=== PATIENT | male | born 1965 | race Caucasian/White ===

== ENCOUNTER 2016-06-29 03:24 | Inpatient (IN) | payer MEDICARE ==
[~2016-06-29] VITALS: Ht 172.7 cm; Wt 88.2 kg
[2016-06-29 04:16] LABS: Basophils # (auto) 0 uL; Basophils % (auto) 0.5 % (0.0-2.0); Eosinophils # (auto) 0.4 uL; Eosinophils % (auto) 3.9 % (0.0-7.0); Hemoglobin 13.3 g/dL (13.5-17.5); Lymphocytes # (auto) 2.1 uL; Lymphocytes % (auto) 21.6 % (10.0-50.0); Mean Corpuscular Hemoglobin 27.5 pg (28.0-32.0); Mean Corpuscular Hgb Conc. 33.3 g/dL (32.0-36.0); Mean Corpuscular Volume 82.5 fL (80.0-100.0); Mean Platelet Volume 10.9 fL (7.4-10.4); Monocytes # (auto) 0.7 uL; Monocytes % (auto) 7.5 % (0.0-12.0); Neutrophils # (auto) 6.6 uL; Neutrophils % (auto) 66.5 % (37.0-80.0); Platelet Count (auto) 232 10^3/uL (140-450); White Blood Cell 9.9 10^3/uL (4.4-10.8)
[2016-06-29 04:34] LABS: Albumin 3.3 g/dL (3.4-5.0); BUN/Creatinine Ratio 18.1; Calcium 8.4 mg/dL (8.5-10.1); Potassium 4.3 mmol/L (3.5-5.1)
[2016-06-29 04:39] LABS: Bilirubin, Total 0.5 mg/dL (0.2-1.0); Total Protein 6.8 g/dL (6.4-8.2)
[2016-06-29] MEDS ORDERED: SODIUM CHLORIDE 0.9% 1,000 ML IV ONE (06:35)
[2016-06-29] MEDS ORDERED: methylPREDNISolone SOD SUCC 125 MG/2 ML VL IV ONE (06:45)
[2016-06-29] MEDS ORDERED: LEVOFLOXACIN 750MG 150 ML IV ONE (06:45)
[2016-06-29] MEDS ORDERED: FUROSEMIDE 40 MG/4 ML VIAL IV ONE (06:45)
[2016-06-29] MEDS ORDERED: methylPREDNISolone SOD SUCC 125 MG/2 ML VL ONE (06:48)
[2016-06-29 07:12] LABS: B-Type Natriuretic Peptide 1808.6 pg/mL (0-100); Temperature: 23.3 C (20.0-25.0)
[2016-06-29] MEDS ORDERED: IOHEXOL 350 MG/ML 100ML IJ ONE (07:16)
[2016-06-29 07:19] LABS: Base Excess -2.1 mmol/L (-2.0-2.0); Blood 02Sat 93.9 % (96-100); Blood COHb 0.5 % (0.5-1.5); Blood MetHb 0.2 % (0.0-1.5); HCO3 21.2 mmol/L (22-26.0); HHb 6.1 % (0.0-5.0); MODE NASAL CANNULA; O2Hb 93.2 % (94.0-97.0); PCO2 32.4 mmHg (35.0-45.0); PCO2(T) 32.4 mmHg (35.0-45.0); PO2 76.1 mmHg (80.0-100.0); PO2(T) 76.1 mmHg (80.0-100.0); Sample Type Arterial; pH 7.434 (7.350-7.450)
[2016-06-29] MEDS ORDERED: LACTULOSE 20Gm/30ML SOLN PO PRN (08:45)
[2016-06-29] MEDS ORDERED: MORPHINE SULF INJ 2 MG/ML SYRINGE 1ML IV PRN ×2 (08:45)
[2016-06-29] MEDS ORDERED: TEMAZEPAM 15 MG CAP PO PRN (08:45)
[2016-06-29] MEDS ORDERED: PROMETHAZINE HCL 25 MG/ML 1ML IV PRN (08:45)
[2016-06-29] MEDS ORDERED: ALBUTEROL SULF 2.5 MG/0.5ML(0.5%) NEB SOLN NEB PRN (08:45)
[2016-06-29] MEDS ORDERED: ACETAMINOPHEN 500 MG TAB PO PRN (08:45)
[2016-06-29] MEDS ORDERED: HYDROcodone-ACET 5/325MG TAB PO PRN (08:45)
[2016-06-29] MEDS ORDERED: NITROGLYCERIN 0.4 MG SL TAB SL PRN (08:45)
[2016-06-29] MEDS ORDERED: LORazepam 0.5 MG TAB PO PRN (08:45)
[2016-06-29] MEDS: cefTRIAXone 1GM/50ML D5W 50 ML IV SCH (09:00)
[2016-06-29] MEDS ORDERED: PANTOPRAZOLE SODIUM 40 MG/10 ML VIAL IV ONE (09:15)
[2016-06-29 09:55] VITALS: BP 106/68
[2016-06-29 10:00] VITALS: BP 106/68
[2016-06-29] MEDS ORDERED: ASPirin 81 mg TAB PO SCH (10:00)
[2016-06-29] MEDS: PANTOPRAZOLE 40 MG TAB PO SCH (10:00)
[2016-06-29] MEDS ORDERED: ENOXAPARIN SOD 40 MG/0.4 ML SYRINGE SC SCH ×2 (10:00)
[2016-06-29] MEDS: AZITHROMYCIN 500MG/D5W 250ML 250 ML IV SCH (10:00)
[2016-06-29] MEDS: CARVEDILOL 3.125 MG TAB PO SCH ×2 (10:39→21:02)
[2016-06-29] MEDS: ENALAPRIL MALEATE 2.5 MG TAB PO SCH (10:39)
[2016-06-29] MEDS: POTASSIUM CHL 20 Meq TABLET PO SCH ×2 (10:44→21:03)
[2016-06-29 12:00] VITALS: BP 103/67
[2016-06-29 12:10] LABS: Hematocrit 41.4 % (41.0-53.0); Hemoglobin 13.5 g/dL (13.5-17.5)
[2016-06-29] MEDS: ALBUTEROL SULF 2.5 MG/0.5ML(0.5%) NEB SOLN NEB SCH ×2 (12:30→18:50)
[2016-06-29 16:00] VITALS: BP 102/54
[2016-06-29] MEDS: FUROSEMIDE 40 MG/4 ML VIAL IV SCH (18:19)
[2016-06-29 19:47] LABS: Hematocrit 40.1 % (41.0-53.0); Hemoglobin 13.1 g/dL (13.5-17.5)
[2016-06-29 19:59] VITALS: BP 116/79
[2016-06-30] VITALS: BP 107/56
[2016-06-30] MEDS: ALBUTEROL SULF 2.5 MG/0.5ML(0.5%) NEB SOLN NEB SCH ×4 (00:55→15:50)
[2016-06-30 04:01] VITALS: BP 87/55
[2016-06-30 05:04] LABS: Basophils # (auto) 0.1 uL; Basophils % (auto) 0.9 % (0.0-2.0); Eosinophils # (auto) 0 uL; Eosinophils % (auto) 0.3 % (0.0-7.0); Hematocrit 40.1 % (41.0-53.0); Hemoglobin 13.2 g/dL (13.5-17.5); Lymphocytes # (auto) 1.6 uL; Lymphocytes % (auto) 12.8 % (10.0-50.0); Mean Corpuscular Hemoglobin 27.4 pg (28.0-32.0); Mean Corpuscular Hgb Conc. 32.8 g/dL (32.0-36.0); Mean Corpuscular Volume 83.3 fL (80.0-100.0); Mean Platelet Volume 11.6 fL (7.4-10.4); Monocytes # (auto) 1.3 uL; Monocytes % (auto) 10.5 % (0.0-12.0); Neutrophils # (auto) 9.2 uL; Neutrophils % (auto) 75.5 % (37.0-80.0); Platelet Count (auto) 255 10^3/uL (140-450); SUSPECT VIEW TRANSMISSION; White Blood Cell 12.1 10^3/uL (4.4-10.8)
[2016-06-30] MEDS: FUROSEMIDE 40 MG/4 ML VIAL IV SCH ×2 (05:12→18:45)
[2016-06-30] MEDS ORDERED: SODIUM CHLORIDE 0.9 % NEB SOLN 3ML NEB ONE ×2 (05:13→05:32)
[2016-06-30 05:21] LABS: Albumin 3.4 g/dL (3.4-5.0); BUN/Creatinine Ratio 23.8; Bilirubin, Total 0.5 mg/dL (0.2-1.0); Calcium 8.9 mg/dL (8.5-10.1); Potassium 4.7 mmol/L (3.5-5.1); Total Protein 7.1 g/dL (6.4-8.2)
[2016-06-30 06:40] LABS: B-Type Natriuretic Peptide 2282.43 pg/mL (0-100); Temperature: 23.1 C (20.0-25.0)
[2016-06-30 08:19] VITALS: BP 111/66
[2016-06-30] MEDS: cefTRIAXone 1GM/50ML D5W 50 ML IV SCH (09:28)
[2016-06-30] MEDS: ENALAPRIL MALEATE 2.5 MG TAB PO SCH (10:00)
[2016-06-30] MEDS: AZITHROMYCIN 500MG/D5W 250ML 250 ML IV SCH (10:24)
[2016-06-30] MEDS: PANTOPRAZOLE 40 MG TAB PO SCH (10:24)
[2016-06-30] MEDS: POTASSIUM CHL 20 Meq TABLET PO SCH ×2 (10:24→22:47)
[2016-06-30] MEDS: CARVEDILOL 3.125 MG TAB PO SCH ×3 (10:24→22:46)
[2016-06-30 11:51] VITALS: BP 97/67
[2016-06-30 16:15] VITALS: BP 110/70
[2016-06-30 22:00] VITALS: BP 94/59
[2016-07-01 05:40] VITALS: BP 100/60
[2016-07-01] MEDS: FUROSEMIDE 40 MG/4 ML VIAL IV SCH ×2 (06:23→17:30)
[2016-07-01 06:25] LABS: Basophils # (auto) 0.1 uL; Basophils % (auto) 1.2 % (0.0-2.0); Eosinophils # (auto) 0.5 uL; Eosinophils % (auto) 4.7 % (0.0-7.0); Hematocrit 43.6 % (41.0-53.0); Hemoglobin 14.3 g/dL (13.5-17.5); Lymphocytes # (auto) 2.4 uL; Lymphocytes % (auto) 23.9 % (10.0-50.0); Mean Corpuscular Hgb Conc. 32.7 g/dL (32.0-36.0); Mean Corpuscular Volume 82.6 fL (80.0-100.0); Mean Platelet Volume 11.6 fL (7.4-10.4); Monocytes # (auto) 0.6 uL; Monocytes % (auto) 6.5 % (0.0-12.0); Neutrophils # (auto) 6.3 uL; Neutrophils % (auto) 63.7 % (37.0-80.0); Platelet Count (auto) 251 10^3/uL (140-450); Red Cell Distribution Width 16.2 % (11.6-16.0); White Blood Cell 9.9 10^3/uL (4.4-10.8)
[2016-07-01 07:01] LABS: Albumin 3.5 g/dL (3.4-5.0); BUN/Creatinine Ratio 26.2; Bilirubin, Total 0.9 mg/dL (0.2-1.0); Calcium 9.1 mg/dL (8.5-10.1); Potassium 4.1 mmol/L (3.5-5.1); Total Protein 7.3 g/dL (6.4-8.2)
[2016-07-01 07:14] LABS: B-Type Natriuretic Peptide 1827.01 pg/mL (0-100); Temperature: 23.3 C (20.0-25.0)
[2016-07-01] MEDS: ALBUTEROL SULF 2.5 MG/0.5ML(0.5%) NEB SOLN NEB SCH ×4 (07:21→18:00)
[2016-07-01 09:00] VITALS: BP 97/54
[2016-07-01] MEDS: ENALAPRIL MALEATE 2.5 MG TAB PO SCH (10:00)
[2016-07-01] MEDS: CARVEDILOL 3.125 MG TAB PO SCH ×2 (10:00→22:00)
[2016-07-01] MEDS: PANTOPRAZOLE 40 MG TAB PO SCH (10:23)
[2016-07-01] MEDS: POTASSIUM CHL 20 Meq TABLET PO SCH ×2 (10:24→22:32)
[2016-07-01] MEDS: cefTRIAXone 1GM/50ML D5W 50 ML IV SCH (10:25)
[2016-07-01] MEDS: AZITHROMYCIN 500MG/D5W 250ML 250 ML IV SCH (11:04)
[2016-07-01 13:00] VITALS: BP 96/64
[2016-07-01 17:00] VITALS: BP 93/56
[2016-07-01 22:00] VITALS: BP 93/56
[2016-07-02 05:30] VITALS: BP 103/58
[2016-07-02] MEDS: ALBUTEROL SULF 2.5 MG/0.5ML(0.5%) NEB SOLN NEB SCH ×4 (05:50→18:00)
[2016-07-02] MEDS: FUROSEMIDE 40 MG/4 ML VIAL IV SCH ×2 (06:31→18:00)
[2016-07-02 08:00] VITALS: BP 100/57
[2016-07-02] MEDS: PANTOPRAZOLE 40 MG TAB PO SCH (09:56)
[2016-07-02] MEDS: POTASSIUM CHL 20 Meq TABLET PO SCH ×2 (09:56→23:06)
[2016-07-02] MEDS: cefTRIAXone 1GM/50ML D5W 50 ML IV SCH (09:57)
[2016-07-02] MEDS: ENALAPRIL MALEATE 2.5 MG TAB PO SCH (10:00)
[2016-07-02] MEDS: CARVEDILOL 3.125 MG TAB PO SCH ×2 (10:00→22:00)
[2016-07-02] MEDS: AZITHROMYCIN 500MG/D5W 250ML 250 ML IV SCH (10:53)
[2016-07-02 13:00] VITALS: BP 88/59
[2016-07-02 14:06] VITALS: BP 88/59
[2016-07-02 17:00] VITALS: BP 101/65
[2016-07-02 22:00] VITALS: BP 94/61
[2016-07-03] MEDS: FUROSEMIDE 40 MG/4 ML VIAL IV SCH (05:31)
[2016-07-03 05:32] VITALS: BP 99/72
[2016-07-03] MEDS: ALBUTEROL SULF 2.5 MG/0.5ML(0.5%) NEB SOLN NEB SCH ×2 (06:54)
[2016-07-03 07:14] LABS: BUN/Creatinine Ratio 20.4; Calcium 8.9 mg/dL (8.5-10.1); Potassium 4.7 mmol/L (3.5-5.1)
[2016-07-03 07:16] LABS: Temperature: 22.9 C (20.0-25.0)
[2016-07-03 08:00] VITALS: BP 109/63
[2016-07-03 09:00] VITALS: BP 109/63
[2016-07-03] MEDS: cefTRIAXone 1GM/50ML D5W 50 ML IV SCH (09:00)
[2016-07-03] MEDS ORDERED: ASPI-231 PO (09:02)
[2016-07-03] MEDS ORDERED: POTA20TA53 PO (09:02)
[2016-07-03] MEDS ORDERED: ENA2.5T PO (09:02)
[2016-07-03] MEDS ORDERED: FURO40TA PO (09:02)
[2016-07-03] MEDS ORDERED: CAR3125T PO (09:02)
[2016-07-03] MEDS ORDERED: LEVO750T64 PO (09:08)
[2016-07-03] MEDS: PANTOPRAZOLE 40 MG TAB PO SCH (10:00)
[2016-07-03] MEDS: CARVEDILOL 3.125 MG TAB PO SCH (10:00)
[2016-07-03] MEDS: POTASSIUM CHL 20 Meq TABLET PO SCH (10:00)
[2016-07-03] MEDS: ENALAPRIL MALEATE 2.5 MG TAB PO SCH (10:00)
[2016-07-03] MEDS: AZITHROMYCIN 500MG/D5W 250ML 250 ML IV SCH (10:00)
== END 2016-07-03 10:32 | disposition home or self-care (01) | DRG 291 ==
LOC: ER 03:31 → TELE 03:32 → DOU IN ICU 10:00 → TELE-WESTW 06-30 20:49
PROVIDERS: ADMIT Internal Medicine; ATTEND Internal Medicine
DX: I50.43 Acute on chronic combined systolic (congestive) and diastolic (congestive) heart failure (principal); J96.00 Acute respiratory failure, unspecified whether with hypoxia or hypercapnia; J18.9 Pneumonia, unspecified organism; J90 Pleural effusion, not elsewhere classified; I11.0 Hypertensive heart disease with heart failure; I35.0 Nonrheumatic aortic (valve) stenosis; I25.10 Atherosclerotic heart disease of native coronary artery without angina pectoris; Z91.19 Patient's noncompliance with other medical treatment and regimen; Z66 Do not resuscitate; F17.210 Nicotine dependence, cigarettes, uncomplicated; I35.9 Nonrheumatic aortic valve disorder, unspecified; F32.9 Major depressive disorder, single episode, unspecified; I25.2 Old myocardial infarction; Z82.49 Family history of ischemic heart disease and other diseases of the circulatory system; Z83.3 Family history of diabetes mellitus; Z95.2 Presence of prosthetic heart valve; Z79.82 Long term (current) use of aspirin
CPT/HCPCS: 36415; 36600; 71010; 71020; 71275; 74176; 80048; 80053; 80061; 82150; 82270; 82378; 82550; 82805; 83605; 83690; 83880; 84443; 84484; 85014; 85018; 85025; 85045; 85379; 85652; 86141; 86850; 86900; 86901; 87040; 87081; 93005; 94640; 96365; 96375; 99291; J0696; J1956